=== PATIENT | male | born 1995 | race Caucasian/White ===

== ENCOUNTER 2018-10-06 10:37 | Outpatient (CLI) | payer OTHER ==
--- NOTE | 2018-10-06 14:14 | CT ---
CT ABDOMEN AND PELVIS WITH IV CONTRAST: 10/06/2018 HISTORY: Right lower quadrant pain and bilateral groin pain for the past two weeks. Possible hernia. COMPARISON: None available. FINDINGS: The lung bases, liver, spleen, pancreas, bilateral adrenal glands, kidneys, abdominal aorta, and urin gonzalo bladder demonstrate a normal CT appearance. A small amount of retained fecal material is seen throughout the colon. The appendix is visualized and is normal in caliber, with areas of gas present within the appendix. There is a trace amount of free fluid seen in the most inferior aspect of the right paracolic gutter, which is adjacent to the region of the appendix, but no periappendiceal inflammatory changes are flori reciated. Findings are thought to be related to an incidental trace amount of free fluid in the righ t paracolic gutter. IMPRESSION: 1. Trace amount of free fluid in the right paracolic gutter. While the appendix is closely adjacent to this region, the appendix is normal in caliber, without thickening of the schilling of the appendix o r periappendiceal inflammatory changes, to suggest evidence of appendicitis. The exact etiology for a trace amount of free fluid in the right paracolic gutter is uncertain, but is abnormal in a male pa tient. 2. No evidence of an inguinal hernia. POS: [facility]
== END 2018-10-06 10:38 | disposition home or self-care (01) ==
LOC: SCSCT 10:37
PROVIDERS: ATTEND Family Medicine
DX: R10.31 Right lower quadrant pain (principal)
CPT/HCPCS: 74177